=== PATIENT | female | born 1975 | race Caucasian/White ===

== ENCOUNTER 2023-10-10 16:44 | Emergency (ER) | payer MEDICAID, OTHER ==
[~2023-10-10] VITALS: Ht 165.1 cm; Wt 66.2 kg
[2023-10-10 16:58] VITALS: BP_SYST 127; PULSE 99; RESP 17; TEMP 97.9; O2SAT 100
[2023-10-10] MEDS: KETOROLAC TROMETHAMINE 60 MG/2 ML VIAL IM ONE (17:39)
[2023-10-10] MEDS ORDERED: LIDO1ADH22 TP (19:10)
[2023-10-10] MEDS ORDERED: DICL75TA5 PO (19:10)
[2023-10-10 19:21] VITALS: BP_SYST 132; PULSE 77; RESP 18; TEMP 97.9; O2SAT 99
== END 2023-10-10 19:20 | disposition home or self-care (01) ==
LOC: SED 16:44
DX: S30.0XXA Contusion of lower back and pelvis, initial encounter (principal); Z88.5 Allergy status to narcotic agent; W18.39XA Other fall on same level, initial encounter; Y93.89 Activity, other specified; Y92.89 Other specified places as the place of occurrence of the external cause; Y99.8 Other external cause status
CPT/HCPCS: 99284; 72170; 72220; 81025; 96372; J1885